=== PATIENT | male | born 1995 | race Two or more races ===

== ENCOUNTER 2018-09-23 16:21 | Emergency (ER) | payer MEDICAID ==
[2018-09-23] MEDS ORDERED: Sodium Chloride 0.9% 1,000 ML IV ONE (17:05)
--- NOTE | 2018-09-23 17:14 | ED Physician Chart ---
ED Chief Complaint/HPI - Patient Information Date Seen:: 09/23/18 Time Seen:: 17:00 Chief Complaint:: abdominal pain and vomiting History of Present Illness:: Patient awoke this morning with right-sided abdominal pain and right CVA pain, nausea and vomiting. Patient has vomited more than 20 times. No diarrhea. Patient normally drinks about 2 pints of whiskey a day. He last drank alcohol yesterday. He drank only beer yesterday; no hard liquor. Laying supine but not ambulating increases her pain. Allergies:: Allergies Allergy/AdvReac Type Severity Reaction Status Date / Time No Known Allergies Allergy Verified 09/23/18 16:25 Vitals:: Vital Signs - 8 hr 09/23/18 16:26 HR 83 RR 18 BP 148/89 O2 Sat % 98 Historian:: Patient ED Review of Systems - Review of Systems General/Constitutional: No fever, No chills, No weight loss, No weakness, No diaphoresis, No edema, No loss of appetite Skin: No skin lesions, No rash, No bruising Head: No headache, No light-headedness Eyes: No loss of vision, No pain, No diplopia ENT: No earache, No nasal drainage, No sore throat, No tinnitus Neck: No neck pain, No swelling, No thyromegaly, No stiffness, No mass noted Cardio Vascular: No chest pain, No palpitations, No PND, No orthopnea, No edema Pulmonary: No SOB, No cough, No sputum, No wheezing GI: Nausea, Vomiting, No diarrhea, Pain, No melena, No hematochezia, No constipation, No hematemesis G/U: No dysuria, No frequency, No hematuria Musculoskeletal: No bone or joint pain, No back pain, No muscle pain Endocrine: No polyuria, No polydipsia Psychiatric: No prior psych history, No depression, No anxiety, No suicidal ideation Hematopoietic: No bruising, No lymphadenopathy Allergic/Immuno: No urticaria, No angioedema Neurological: No syncope, No focal symptoms, No weakness, No paresthesia, No headache, No seizure, No dizziness, No confusion, No vertigo ED Past Medical History - Past Medical History Past Medical History: No significant medical hx Family History: Heart disease Social History: Non Smoker, Alcohol Surgical History: None Psychiatricy History: None Medication: None Family Medical History - Family Member Father Age: 40 Ethnicity: Living Status: Still Living Hx Family Cancer: Yes (Testicular) Other Medical History: ETOH ED Physical Exam - Physical Examination General/Constitutional: Well-developed, well-nourished, Alert, No distress Head: Atraumatic Eyes: Lids, conjuctiva normal, PERRL Skin: Nl inspection, No rash, No skin lesions, No ecchymosis ENMT: External ears, nose nl, TM canals nl, Nasal exam nl, Lips, teeth, gums nl , Oropharynx nl, Tonsils nl Neck: No nuchal rigidity Respiratory: Nl effort/Exclusion, Clear to Auscultation, No Wheeze/Rhonchi/Rales Cardio Vascular: RRR, No murmur, gallop, rubs, NL S1 S2 GI: No organomegaly, No hernia, Normal BS's, Nondistended, No mass/bruits Other GI comments:: Tenderness right lower quadrant and right midabdomen at level of the umbilicus; mild right upper quadrant tenderness ED Labs/Radiology/EKG Results - Lab Results Results: Laboratory Results WBC 12.5 Th/cmm (4.8-10.8) H 09/23/18 17:15 RBC 5.86 Mil/cmm (4.30-5.70) H 09/23/18 17:15 Hgb 17.6 gm/dL (12-16) 09/23/18 17:15 Hct 51.7 % (41.0-60) 09/23/18 17:15 MCV 88.2 fl (80-99) 09/23/18 17:15 MCH 30.1 pg (26.0-30.0) H 09/23/18 17:15 MCHC Differential 34.1 pg (28.0-36.0) 09/23/18 17:15 RDW 12.8 % (11.5-20.0) 09/23/18 17:15 Plt Count 303 Th/cmm (150-400) 09/23/18 17:15 MPV 7.5 fl 09/23/18 17:15 Neutrophils % 79.5 % (40.0-80.0) 09/23/18 17:15 Lymphocytes % 12.0 % (20.0-50.0) L 09/23/18 17:15 Monocytes % 7.5 % (2.0-10.0) 09/23/18 17:15 Eosinophils % 0.2 % (0.0-5.0) 09/23/18 17:15 Basophils % 0.8 % (0.0-2.0) 09/23/18 17:15 Sodium 139 mEq/L (136-145) 09/23/18 17:15 Potassium 3.3 mEq/L (3.5-5.1) L 09/23/18 17:15 Chloride 95 mEq/L (98-107) L 09/23/18 17:15 Carbon Dioxide 30.8 mEq/L (21.0-31.0) 09/23/18 17:15 Anion Gap 16.5 (7.0-16.0) H 09/23/18 17:15 BUN 11 mg/dL (7-25) 09/23/18 17:15 Creatinine 0.8 mg/dL (0.7-1.3) 09/23/18 17:15 Est GFR ( Amer) > 60.0 ml/min (>90) 09/23/18 17:15 Est GFR (Non-Af Amer) > 60.0 ml/min 09/23/18 17:15 BUN/Creatinine Ratio 13.8 09/23/18 17:15 Glucose 128 mg/dL (70-105) H 09/23/18 17:15 Calcium 10.2 mg/dL (8.6-10.3) 09/23/18 17:15 Magnesium 2.1 mg/dL (1.9-2.7) 09/23/18 17:15 Lipase 28 U/L (11-82) 09/23/18 17:15 Urine Source MIDSTREAM 09/23/18 17:15 Urine Color YELLOW 09/23/18 17:15 Urine Clarity CLEAR (CLEAR) 09/23/18 17:15 Urine pH 8.5 (4.6 - 8.0) 09/23/18 17:15 Ur Specific [place] 1.010 (1.005-1.030) 09/23/18 17:15 Urine Protein >=300 mg/dL (NEGATIVE) 09/23/18 17:15 Urine Glucose (UA) NEGATIVE mg/dL (NEGATIVE) 09/23/18 17:15 Urine Ketones TRACE mg/dL (NEGATIVE) 09/23/18 17:15 Urine Blood NEGATIVE (NEGATIVE) 09/23/18 17:15 Urine Nitrate NEGATIVE (NEGATIVE) 09/23/18 17:15 Urine Bilirubin SMALL (NEGATIVE) H 09/23/18 17:15 Urine Urobilinogen 1.0 E.U./dL (0.2 - 1.0) 09/23/18 17:15 Ur Leukocyte Esterase NEGATIVE (NEGATIVE) 09/23/18 17:15 Urine RBC 0-2 /hpf (0-5) H 09/23/18 17:15 Urine WBC 2-5 /hpf (0-5) 09/23/18 17:15 Ur Epithelial Cells FEW /lpf (FEW) 09/23/18 17:15 Urine Bacteria 1+ /hpf (NONE SEEN) H 09/23/18 17:15 Urine Mucus MODERATE /lpf (FEW) 09/23/18 17:15 ED Assessment - Assessment General Assessment: At 1900 patient had right lower quadrant tenderness to deep palpation without rebound or guarding. The ultrasound could not visualize the appendix so a CAT scan was done to determine if the patient has appendicitis. CT abdomen and pelvis showed a normal appendix. Patient to be given 40 mEq of KCl and instructed to supplement his regular diet with lots of half Gatorade half water and extra bananas. Patient to be prescribed Zofran 4 mg oral disintegrating tablets to take one every 4-6 hours as necessary for nausea and vomiting. Patient also instructed to return to the emergency department if his abdominal pain does not improve or worsens. He was told he needs a fasting blood sugar in follow-up with a primary care physician to evaluate for possible diabetes. ED Septic Shock - . Is Septic Shock (SBP<90, OR Lactate>4 mmol\L) present?: No - <6hrs of presentation: Vital Signs: Vital Signs - 8 hr 09/23/18 16:26 HR 83 RR 18 BP 148/89 O2 Sat % 98 ED Reassessment (Disposition) - Reassessment Reassessment Condition:: Improved - Diagnosis Diagnosis:: Acute viral syndrome with vomiting; hypokalemia - Aftercare/Follow up Instructions Aftercare/Follow-Up Instructions:: Refer to Discharge Instructions - Patient Disposition Discharge/Transfer:: Home Condition at Disposition:: Stable, Improved
[2018-09-23 17:23] LABS: % BASOPHILS 0.8 % (0.0-2.0); % EOSINOPHILS 0.2 % (0.0-5.0); % MONOCYTES 7.5 % (2.0-10.0); % NEUTROPHILS 79.5 % (40.0-80.0); BASOPHILE ABSOLUTE 0.1 Th/cumm (0-0.2); HEMATOCRIT 51.7 % (41.0-60); HEMOGLOBIN 17.6 gm/dL (12-16); LYMPHOCYTE ABSOLUTE 1.5 Th/cmm (1.5-3.0); MEAN CELL VOLUME 88.2 fl (80-99); MEAN CORPUSCULAR HEMOGLOBIN 30.1 pg (26.0-30.0); MEAN CORPUSCULAR HGB CONC 34.1 pg (28.0-36.0); MONOCYTE ABSOLUTE 0.9 Th/cmm (0.3-1.0); PLATELET COUNT 303 Th/cmm (150-400); RED BLOOD COUNT 5.86 Mil/cmm (4.30-5.70); RED CELL DISTRIBUTION WIDTH 12.8 % (11.5-20.0); WHITE BLOOD COUNT 12.5 Th/cmm (4.8-10.8)
[2018-09-23 17:28] LABS: URINE SOURCE MIDSTREAM
[2018-09-23 17:30] LABS: URINE BILIRUBIN SMALL (NEGATIVE); URINE BLOOD NEGATIVE (NEGATIVE); URINE GLUCOSE (UA) NEGATIVE (NEGATIVE); URINE KETONE TRACE mg/dL (NEGATIVE); URINE LEUKOCYTE ESTERASE NEGATIVE (NEGATIVE); URINE NITRATE NEGATIVE (NEGATIVE); URINE PH 8.5 (4.6 - 8.0); URINE PROTEIN >=300 mg/dL (NEGATIVE)
[2018-09-23 17:39] LABS: URINE CLARITY CLEAR (CLEAR); URINE COLOR YELLOW; URINE MICROSCOPIC INDICATED? YES
[2018-09-23 17:47] LABS: URINE BACTERIA 1+ /hpf (NONE SEEN); URINE EPITHELIAL CELLS FEW /lpf (FEW); URINE RBC 0-2 /hpf (0-5)
[2018-09-23 17:55] LABS: ANION GAP 16.5 (7.0-16.0); BUN - UREA NITROGEN 11 mg/dL (7-25); CALCIUM SERUM 10.2 mg/dL (8.6-10.3); CARBON DIOXIDE 30.8 mEq/L (21.0-31.0); CHLORIDE 95 mEq/L (98-107); CREATININE - SERUM 0.8 mg/dL (0.7-1.3); GFR AFRICAN-AMERICAN > 60.0 ml/min (>90); GFR NON AFRICAN-AMERICAN > 60.0 ml/min; GLUCOSE 128 mg/dL (70-105); LIPASE 28 U/L (11-82); MAGNESIUM 2.1 mg/dL (1.9-2.7); POTASSIUM SERUM 3.3 mEq/L (3.5-5.1); SODIUM SERUM 139 mEq/L (136-145)
[2018-09-23] MEDS ORDERED: Potassium Chloride 20 mEq ER Tab PO ONE ×2 (19:45→19:50)
--- NOTE | 2018-09-24 08:25 | Diagnostic Imaging Report ---
Abdominal ultrasound HISTORY: Pain Exam is limited due to considerable bowel gas. No focal hepatic lesions are seen. There is a distended gallbladder. No definite intraluminal abnormalities. No biliary dilatation. The pancreas cannot be well seen due to bowel gas. The right kidney appears normal. The left kidney cannot be well seen due to bowel gas. The spleen is also not clearly visualized. No other obvious retroperitoneal or intra-abdominal abnormalities. IMPRESSION: 1. Limited exam due to considerable bowel gas 2. No definite abnormalities
--- NOTE | 2018-09-24 13:22 | Diagnostic Imaging Report ---
CT scan of the abdomen and pelvis without intravenous contrast History: Pain Total DLP equals 357 CTDI equals 7.4 Axial sections were obtained from the xiphoid process down to the pubic symphysis. The liver demonstrates a normal size and contour. No focal lesions are seen. The spleen appears normal. No abnormalities are seen in the region of the pancreas. The kidneys appear normal bilaterally. No abnormality seen in the region of the appendix. The exam of the pelvis demonstrates preservation of normal fat planes. No abnormal soft tissue masses. No abnormal fluid collections. Impression: Negative examination
== END 2018-09-23 20:05 | disposition home or self-care (01) ==
LOC: ER 16:21
DX: B34.9 Viral infection, unspecified (principal); E87.6 Hypokalemia; R11.2 Nausea with vomiting, unspecified; R10.31 Right lower quadrant pain
CPT/HCPCS: 99284; 96374; 76705; 74176; 36415; 85025; 81001; 83690; 83735; 80048; J2405; J7030